=== PATIENT | female | born 1945 | race Caucasian/White ===

== ENCOUNTER → 2017-03-13 | Outpatient (CLI) | payer OTHER ==
[~2017-03-13] MED LIST: ALBUTEROL17 GM INH; ALEVE220 M1 PO; NICODERM; PREDNISONE PO; SYMBICORT INH; ZITHROMAX PO
--- NOTE | ~2017-03-13 | MY9 ---
[facility] A Service of [facility] RADIOLOGY TEXT RESULTS PATIENT: REN HALL LOCATION: [facility] : 49 UNIT #: [id number] AGE: [address]: Son Mac MD SEX: F ORDER DR: [id number] [address] [address] [id number] O MR#: [id number] Acc #: [id number] NAME: REN HALL : 1945 SEX: F STUDY DATE/TIME: 03/13/2017 10:49 UNIT: [facility] ROOM: STUDY DESCRIPTION: MY Mammogram Screen Uni Dig Lt Attending Physician: Son Mac M.D. Referring Physician: Son Mac M.D. Ordering Physician: Son Mac M.D. Primary Care Physician: Son Mac M.D. MEDICAL IMAGING REPORT This report is preliminary unless electronic signature is present. EXAM Unilateral left digital screening mammogram, 03/13/2017 HISTORY 71-year-old woman previous right mastectomy. Known left nipple inversion. Annual screening. COMPARISON Outside mammograms now available 08/21/2013 from [place]. FINDINGS Digital imaging of the left breast was completed with 3 views recorded. Review includes FDA-approved CAD device. Breast parenchyma remains moderately dense with residual fibroglandular opacities present. There are occasional benign calcifications noted. Duct prominence is noted and stable. I see no suspicious mass. There are no interval occurring microcalcifications and no suspicious architectural deformity. IMPRESSION Stable benign unilateral left mammogram. Status post right mastectomy. Annual screening recommended. Patients over the age of 40 are entered into a reminder system with target due date for the next mammogram. A result letter will also be sent to the patient. BIRADS: 1 Negative Dictated by... Robin Galvez M.D. THIS IS AN ELECTRONICALLY VERIFIED REPORT Robin Galvez M.D. at 03/17/2017 12:28 PM [facility] A Service of [facility] RADIOLOGY TEXT RESULTS PATIENT: REN HALL LOCATION: [facility] : 49 UNIT #: [id number] AGE: [address]: Son Mac MD SEX: F ORDER DR: Elmer TD: 03/17/2017 11:04 JOB #: [id number] MEDICAL IMAGING REPORT Page 1 of 1
== END | disposition home or self-care (01) ==
LOC: SMAM 10:05
DX: Z12.31 Encounter for screening mammogram for malignant neoplasm of breast (principal); Z85.3 Personal history of malignant neoplasm of breast; Z90.11 Acquired absence of right breast and nipple
CPT/HCPCS: G0202